=== PATIENT | male | born 1955 | race Caucasian/White ===

== ENCOUNTER 2021-04-19 17:00 | Emergency (ER) | payer MEDICARE, MEDICAID, SELFPAY ==
[2021-04-19 17:14] VITALS: BP 128/78; PULSE 82; RESP 18; TEMP 36.8; O2SAT 98; BMI 35.7
--- NOTE | 2021-04-19 20:02 | ED.SKABFB ---
HPI - Skin/Abscess/Foreign Bdy General Chief complaint: Skin/Abscess/Foreign Body Stated complaint: Abscess Time Seen by Provider: 04/19/21 20:01 Source: patient Mode of arrival: ambulatory Limitations: no limitations History of Present Illness HPI narrative: 66-year-old male presents to the ER with a painful lump on his back that he noticed 4 days ago. His reports that is red and raised and hard. He has had no fever or chills. No drainage from the area. He also complains of a rash the tip of his penis. He thinks it is a fungus. He has had this before and was treated with topical and oral medication with resolution. He denies any blood in his urine, burning with urination, increased frequency or urgency. He denies abdominal pain nausea vomiting. MD complaint: rash and abscess/boil Onset (ago): day(s) (4) Tetanus up to date: yes Location: back and genitals Severity: moderate Quality: aching Pain Consistency: intermittent Relieving factors: none Exacerbating factors: none Context: none Associated symptoms: denies other symptoms Treatments prior to arrival: none Related Data Previous Rx's Medication Instructions Recorded cephalexin 500 mg capsule 500 mg PO Q6H 7 Days #28 cap 04/19/21 clotrimazole 1 % topical cream 1 appl TOPICAL BID #45 g 04/19/21 Allergies Allergy/AdvReac Type Severity Reaction Status Date / Time methadone [Methadone] Allergy Mild AGITATION Unverified 01/21/20 15:10 morphine [Morphine] Allergy Mild AGITATION Unverified 01/21/20 15:10 oxycodone [From Percocet] Allergy Mild ITCHING Unverified 01/21/20 15:10 atorvastatin Allergy Unknown Verified 04/10/17 00:00 niacin Allergy Unknown Verified 04/10/17 00:00 MORPHINE Allergy Unknown Uncoded 04/10/17 00:00 Review of Systems Review of Systems: Constitutional: No Fever, No Chills ENT/Mouth: No sore throat, No Rhinorrhea, No Swallowing Difficulty Cardiovascular: No Chest Pain, No SOB Gastrointestinal: No Nausea, No Vomiting, No Diarrhea, No abdominal Pain Genitourinary: No Dysuria, No Urinary Frequency, No Hematuria, No penile discharge Musculoskeletal: No joint pain, + Myalgias Skin: + Skin Lesions, + rash Heme/Lymph: No Bruising Endocrine: No Polyuria, No Polydipsia PMFSH Social History Social History Advance Directives: No Advance Directives Information Provided: No Physical Exam Vital Signs: Vital Signs: Last Vital Signs Temp 98.3 F 04/19/21 17:14 Pulse 82 04/19/21 17:14 Resp 18 04/19/21 17:14 BP 128/78 04/19/21 17:14 Pulse Ox 98 04/19/21 17:14 BMI result Body Mass Index 35.7 Appearance: Alert. Oriented X3. No acute distress. Eyes: Pupils equal, round and reactive to light. ENT: Pharynx normal. Neck: Normal inspection. Neck supple. CVS: Normal heart rate and rhythm. Pulses normal. Respiratory: No respiratory distress. Breath sounds normal. Back: Middle upper back with a large 6 cm indurated area with some bluish/erythematous skin changes overlying with central comedone present. Thick white pus able to be expressed slightly. No fluctuance. No warmth. Genitalia: Uncircumcised penis, when foreskin is retracted there is some friable erythematous skin with superficial spliting around the glans, tender, no drainage, no urethral meatus drainage. Testicles are nontender Extremities: No lower extremity edema. Neuro: Oriented X 3. No motor deficit. No sensory deficit. Course Course Course Narrative: 66-year-old male presents to the ER with a painful bump on his back for the last 4 days as well as some tender, erythematous skin with splitting at the glans of his penis. Exam is consistent with balanitis, most consistent with fungal etiology. Will prescribe topical clotrimazole. He also has some mild cellulitis with a inflamed most likely cyst of the back. There is no evidence for abscess. It is indurated and not amenable to incision and drainage at this time. He was counseled to follow-up his primary care doctor and Dermatology for possible excision with cyst wall removal. Patient agreeable with plan is stable for discharge home. Will treat with p.o. Keflex for possible mild superficial cellulitis. Discharge Plan Discharge Clinical Impression: Cellulitis Qualifiers: Site of cellulitis: trunk Site of cellulitis of trunk: back Qualified Code(s): L03.312 - Cellulitis of back [any part except buttock] Patient Disposition: Home, Self-Care Instructions: Cellulitis (ED), Balanitis (ED), Warm Compress or Soak (ED) Prescriptions: New cephalexin 500 mg capsule 500 mg PO Q6H 7 Days Qty: 28 RF: 0 clotrimazole 1 % cream 1 appl topical BID Qty: 45 RF: 0 Referrals: Madeline Randall PA-C [Physician Senior Information Security Architect] - 1 week (large cyst on the back) Print Language: Palauan
== END 2021-04-19 20:37 | disposition home or self-care (01) ==
PROVIDERS: Emergency Provider Emergency Medicine; PCP Student in an Organized Health Care Education/Training Program
DX: L03.312 Cellulitis of back [any part except buttock and flank] (principal); N48.1 Balanitis
CPT/HCPCS: 99283

== ENCOUNTER 2021-11-10 15:36 | Emergency (ER) | payer MEDICARE, MEDICAID, SELFPAY ==
--- NOTE | ~2021-11-10 | XR_ITS ---
EXAMINATION: XR WRIST, RIGHT CLINICAL INFORMATION: Pain and tingling COMPARISON: Right finger radiographs 03/07/2019 TECHNIQUE: Four views of the right wrist. FINDINGS: No acute fracture or dislocation. Joint spaces are maintained. Soft tissues are unremarkable. XR/XR wrist RT min 3V IMPRESSION: No acute osseous abnormality.
[2021-11-10 15:41] VITALS: BP 122/78; PULSE 95; RESP 18; TEMP 35.9; O2SAT 94; BMI 37.8
--- NOTE | 2021-11-10 15:44 | ECG_ITS ---
Test Reason : arm pain Blood Pressure : / mmHG Vent. Rate : 087 BPM Atrial Rate : 087 BPM P-R Int : 154 ms QRS Dur : 098 ms QT Int : 380 ms P-R-T Axes : 052 -49 089 degrees QTc Int : 457 ms Normal sinus rhythm Incomplete right bundle branch block Left anterior fascicular block Minimal voltage criteria for LVH, may be normal variant ( R in aVL ) Abnormal ECG When compared to the previous EKG of No significant changes seen Referred By: Generic ED Physician Electronically Signed By:Jose Thompson
[2021-11-10 16:38] LABS: Appearance Urine CLEAR; Color Urine YELLOW; Glucose Urine UA >=1000 MG/DL (NEG); Leukocyte Esterase Urine NEG (NEG); Nitrite Urine NEG (NEG); PH 5.5 (5.0-8.0); UACC Culture Trigger NO; Urine Blood TRACE (NEG); Urine Ketones NEG (NEG); Urine Protein 1+ MG/DL (NEG-TRACE)
[2021-11-10 16:56] LABS: Mucus Urine TRACE /LPF; RBC Urine 0 /HPF (0); Renal Epithelial Cells Urine TRACE /LPF; Squamous Epithelial Cell Urine TRACE /LPF; WBC Urine 0-2 /HPF (0-4)
[2021-11-10] MEDS: Fluconazole 150 MG TABLET PO (17:13)
[2021-11-10] MEDS: Ketorolac Tromethamine 15 MG/ML VIAL IM (17:14)
--- NOTE | 2021-11-10 17:18 | ED_ITS ---
HPI - Extremity Problem General Chief complaint: Extremity Injury, Upper Stated complaint: r arm pain Time Seen by Provider: 11/10/21 16:50 Source: patient and family Mode of arrival: ambulatory Limitations: no limitations History of Present Illness HPI Narrative: 66-year-old male with history of diabetes who presents to the ER for evaluation of nontraumatic right wrist pain for the last 1 week. He reports the pain is shooting in nature and causes tingling into his middle finger. It is worse within he moves his wrist and palpates the palmar aspect of the wrist. He is right-hand dominant. He does not work. He also reports there was some shooting of the pain into the forearm and generalized swelling of his forearm the other day, which has improved. No fever or chills. No weakness in the right upper e xtremity. No right shoulder pain and no chest pain. No shortness of breath. MD Complaint: extremity pain Onset (ago): week(s) (1) Pain Consistency: constant Location: right and upper extremity Severity scale (1-10): 6 Quality: stabbing and sharp Radiation: proximal and distal Relieving factors: rest Exacerbating factors: range of motion and palpation Associated symptoms: denies other symptoms Related Data Previous Rx's Medication Instructions Recorded cephalexin 500 mg capsule 500 mg PO Q6H 7 days #28 caps 04/19/21 clotrimazole 1 % topical cream 1 appl topical BID #45 grams 04/19/21 clotrimazole 1 % topical cream 1 appl topical BID 2 weeks #30 11/10/21 grams fluconazole 150 mg tablet 150 mg PO ONCE #1 tab 11/10/21 (Diflucan) naproxen 500 mg tablet 500 mg PO BID pain #10 tabs 11/10/21 Allergies Allergy/AdvReac Type Severity Reaction Status Date / Time methadone [Methadone] Allergy Mild AGITATION Unverified 01/21/20 15:10 morphine [Morphine] Allergy Mild AGITATION Unverified 01/21/20 15:10 oxycodone [From Percocet] Allergy Mild ITCHING Unverified 01/21/20 15:10 atorvastatin Allergy Unknown Verified 04/10/17 00:00 niacin Allergy Unknown Verified 04/10/17 00:00 MORPHINE Allergy Unknown Uncoded 04/10/17 00:00 Review of Systems Review of Systems: Constitutional: No Fever, No Chills ENT/Mouth: No sore throat, No Rhinorrhea Cardiovascular: No Chest Pain, No SOB Respiratory: No Cough, No Sputum Gastrointestinal: No Nausea, No Vomiting, No Diarrhea, No abdominal Pain, No Hematochezia, No Melena Genitourinary: No Dysuria, No Urinary Frequency, No Hematuria, +penile head infection Musculoskeletal: + joint pain, No Myalgias Skin: No Skin Lesions, No rash Neuro: No Weakness, No Numbness Heme/Lymph: No Bruising, No Lymphadenopathy Endocrine: No Polyuria, No Polydipsia [facility] Social History Social History Advance Directives: No Advance Directives Information Provided: Yes Physical Exam Vital Signs: Vital Signs: Last Vital Signs Temp 97.6 F 11/10/21 19:09 Pulse 65 11/10/21 19:09 Resp 18 11/10/21 19:09 BP 143/79 H 11/10/21 19:09 Pulse Ox 93 11/10/21 19:09 O2 Del Method 11/10/21 19:09 BMI result Body Mass Index 37.8 Appearance: Alert. Oriented X3. No acute distress. Eyes: Pupils equal, round and reactive to light. ENT: Pharynx normal. Neck: Normal inspection. Neck supple. CVS: Normal heart rate and rhythm. Pulses normal. Respiratory: No respiratory distress. Breath sounds normal. Abdomen: Soft and nontender. +BS x4 : Uncircumcised penis, foreskin is easily retractable with raw and irritated skin on the glans, white discharge present. No urethral meatal discharge. No scrotal tenderness. Skin: Skin warm and dry. Normal skin color. Normal skin turgor. No rashes. Extremities: No lower extremity edema. Right wrist with mild generalized swelling, tenderness to palpation on the volar aspect. On the palmar aspect positive Tinel sign. Positive sensory deficit along the middle finger on the right hand. Vascularly intact with cap refill less than 3 seconds. Equal phone screener strength bilaterally. Bilateral forearms are equal and symmetric. Compartments are soft and compressible. Some discomfort with range of motion of the right wrist. Neuro: Oriented X 3. Grossly normal, nonfocal. Course Course Course Narrative: 66-year-old male presents to the ER with nontraumatic right wrist pain and paresthesias in the right middle finger. Physical exam and clinical presentation are most consistent with carpal tunnel syndrome. X-ray is negative. He was placed in a velcro wrist cock-up splint with significant improvement in his symptoms. Will plan to refer to Dr. Manzano for further evaluation and treatment. Will give a short course of NSAID for pain control. Physical exam also consistent with fungal balanitis. He has a history of this in the past. He was given dose of Diflucan and will plan to prescribed topical antifungal agent to treat. He will follow up with primary care doctor next week. He is stable for discharge home. MDM - Extremity (Nontraumatic) Lab Data Labs: Lab Results 11/10/21 Range/Units 16:14 Urine Color YELLOW Urine Appearance CLEAR Urine pH 5.5 (5.0-8.0) Ur Specific [place] 1.020 (1.005-1.025) Urine Protein 1+ H (NEG-TRACE) MG/DL Urine Glucose (UA) >=1000 H (NEG) MG/DL Urine Ketones NEG (NEG) MG/DL Urine Blood TRACE (NEG) Urine Nitrite NEG (NEG) Ur Leukocyte Esterase NEG (NEG) Urine RBC 0 (0) /HPF Urine WBC 0-2 (0-4) /HPF Ur Squamous Epith Cells TRACE /LPF Ur Renal Epithelial Cell TRACE /LPF Urine Bacteria NONE /LPF Urine Mucus TRACE /LPF Urine Yeast 1+ /HPF ECG Data Attestation EKG: I personally reviewed and interpreted this ECG as follows: ECG interpretation date: 11/10/21 ECG interpretation time: 19:58 Prior ECG tracings: available for review Interpretation: Normal sinus rhythm, heart rate 87 beats per minute, incomplete right bundle branch block, no ST segment elevations or depressions. QTC 457. Critical Care Time Critical Care Time Critical Care Time: No Discharge Plan Discharge Clinical Impression: Carpal tunnel syndrome, Balanitis Patient Disposition: Home, Self-Care Instructions: Balanitis (ED), Paresthesia (ED), Carpal Tunnel Surgery (DC) Additional Instructions: Your x-ray of the wrist was normal. Your examination and symptoms are most likely due to carpal tunnel syndrome. Recommend wearing the provided wrist brace as needed for comfort throughout the day. Also recommend that you wear the brace when you sleep at nighttime. Recommend following up with orthopedics for further evaluation and treatment. Take the prescribed Diflucan in 72 hours. You were given 1 dose in the em ergency department today. Use the prescribed topical anti fungal treatment on your penis to help treat the infection. Follow-up with your doctor next week. If you develop new or worsening symptoms call 911 or come back to the ER for further evaluation. Fonseca radiograf?a de la mu?eca fue normal. Lo m?s probable es que fonseca examen y edin s?ntomas se deban al s?ndrome del t?cori carpiano. Se recomienda usar la mu?equera provista seg?n sea necesario para mayor comodidad eliana todo el d?a. Tambi?n le recomendamos que use el aparato ortop?dico cuando duerma por la noche. Recomendar el seguimiento con ortopedia para radu evaluaci?n y tratamiento adicionales. [place] el Diflucan recetado en 72 horas. Le dieron 1 dosis en el departamento de emergencias hoy. Use el tratamiento antimic?jim t?farzad recetado en fonseca pene para ayudar a tratar la infecci?n. Seguimiento con fonseca m?dico la pr?xima semana. Si desarrolla s?ntomas nuevos o que empeoran, llame al 911 o regrese a la juan de emergencias para radu evaluaci?n adicional. Prescriptions: New clotrimazole 1 % cream 1 appl topical BID 14 Days Qty: 30 0RF fluconazole [Diflucan] 150 mg tablet 150 mg PO ONCE Qty: 1 0RF Rx Instructions: to be taken on 11/13/21 naproxen 500 mg tablet 500 mg PO BID Qty: 10 0RF No Action cephalexin 500 mg capsule 500 mg PO Q6H 7 Days Qty: 28 0RF clotrimazole 1 % cream 1 appl topical BID Qty: 45 0RF Referrals: Mai Manzano MD [Physician] - (Right wrist pain, exam consistent with carpal tunnel syndrome.)
[2021-11-10 19:09] VITALS: BP 143/79; PULSE 65; RESP 18; TEMP 36.4; O2SAT 93
== END 2021-11-10 20:02 | disposition home or self-care (01) ==
PROVIDERS: Emergency Provider Internal Medicine; PCP Student in an Organized Health Care Education/Training Program
DX: G56.01 Carpal tunnel syndrome, right upper limb (principal); N48.1 Balanitis; I45.19 Other right bundle-branch block
CPT/HCPCS: 73110; 81001; 93005; 96372; 99283; 99284; J1885

== ENCOUNTER 2021-11-30 16:00 | Emergency (ER) | payer MEDICARE, MEDICAID, SELFPAY ==
--- NOTE | ~2021-11-30 | XR_ITS ---
EXAMINATION: XR HAND, RIGHT CLINICAL INFORMATION: Pain. COMPARISON: None TECHNIQUE: PA, lateral, and oblique views of the right hand. FINDINGS: The bones and soft tissues are normal. No fracture. Alignment is anatomic. Joint spaces are maintained. No erosions or soft tissue calcifications. XR/XR hand wrist RT IMPRESSION: Normal right hand.
--- NOTE | ~2021-11-30 | US_ITS ---
EXAMINATION: US VENOUS WITH DOPPLER UPPER EXTREMITY, RIGHT CLINICAL INFORMATION: Right upper extremity pain and swelling. Evaluate for deep vein thrombosis. COMPARISON: None TECHNIQUE: Ultrasound of the upper extremity is performed using compression sonography and color and pulse Doppler flow with assessment of augmentation of flow. There is also imaging and Doppler assessment of the jugular and subclavian veins. Spectral analysis with color-flow imaging is performed. FINDINGS: Respiratory variation, normal compression, and augmented flow are noted throughout the upper extremity including the axillary, brachial, cubital, and radial and ulnar veins. There is normal flow in the internal jugular and subclavian veins. There is no visible deep or superficial thrombophlebitis. If the patient's symptoms progress, a followup ultrasound in 5 -7 days might be of value to exclude proximal propagation from a nonvisualized distal arm vein. US/US venous duplex UE RT IMPRESSION: No DVT demonstrated in the right upper extremity.
[2021-11-30 17:28] VITALS: BP 140/74; PULSE 86; RESP 16; TEMP 36.6; O2SAT 94; BMI 36.6
--- NOTE | 2021-11-30 20:16 | ED.EXTPRO ---
HPI - Extremity Problem General Chief complaint: Extremity Problem Stated complaint: R HAND SWELLING Time Seen by Provider: 11/30/21 20:14 Source: patient Mode of arrival: ambulatory Limitations: no limitations History of Present Illness HPI Narrative: 66-year-old male with history of diabetes presenting to the ER for nontraumatic right wrist pain for 2-3 weeks.? He descibes the pain as shooting and causes tingling into his middle fingers intermittently.? It is worse within he moves his wrist and palpates the palmar aspect of the wrist.? He is right-hand dominant.? He does not work.? He also reports there was some shooting pain into the forearm and generalized swelling of his forearm?that has been worsening. Denies fevers, chills, chest pain, shortness of breath, nausea, vomiting. Patient not on anticoagulation. No history of DVT. MD Complaint: extremity pain and extremity swelling Related Data Previous Rx's Medication Instructions Recorded cephalexin 500 mg capsule 500 mg PO Q6H 7 days #28 caps 04/19/21 clotrimazole 1 % topical cream 1 appl topical BID #45 grams 04/19/21 clotrimazole 1 % topical cream 1 appl topical BID 2 weeks #30 11/10/21 grams fluconazole 150 mg tablet 150 mg PO ONCE #1 tab 11/10/21 (Diflucan) naproxen 500 mg tablet 500 mg PO BID pain #10 tabs 11/10/21 acetaminophen 325 mg capsule 650 mg PO Q6H PRN pain #20 caps 11/30/21 prednisone 20 mg tablet 40 mg PO DAILY 5 days #10 tabs 11/30/21 Allergies Allergy/AdvReac Type Severity Reaction Status Date / Time methadone [Methadone] Allergy Mild AGITATION Unverified 01/21/20 15:10 morphine [Morphine] Allergy Mild AGITATION Unverified 01/21/20 15:10 oxycodone [From Percocet] Allergy Mild ITCHING Unverified 01/21/20 15:10 atorvastatin Allergy Unknown Verified 04/10/17 00:00 niacin Allergy Unknown Verified 04/10/17 00:00 MORPHINE Allergy Unknown Uncoded 04/10/17 00:00 Review of Systems Review of Systems: Constitutional : No Weight loss, No Fever, No Chills, No Fatigue, No Malaise ENT/Mouth : No sore throat, No Rhinorrhea Eyes: No Eye Pain, No Swelling, No Redness Cardiovascular : No Chest Pain, No SOB, No Dyspnea on Exertion, No Orthopnea, No Edema, No Palpitations Respiratory : No Cough, No Sputum, No Wheezing Gastrointestinal : No Nausea, No Vomiting, No Diarrhea, No Constipation, No abdominal Pain, No Hematochezia, No Melena Genitourinary : No Dysuria, No Urinary Frequency, No Hematuria, Musculoskeletal : + joint pain, No Myalgias, + Joint Swelling Skin : No Skin Lesions, No rash Neuro : No Weakness, No Numbness, No Dizziness, No Headache All other systems reviewed and are negative Yes all other systems are reviewed and are negative [facility] Past Medical History Attestation statement: The following information was validated with the patient. Source: old records reviewed and nursing notes reviewed Social History Social History Advance Directives: No Advance Directives Information Provided: No Physical Exam Vital Signs: Vital Signs: Last Vital Signs Temp 98 F 11/30/21 17:28 Pulse 86 11/30/21 17:28 Resp 16 11/30/21 17:28 BP 140/74 H 11/30/21 17:28 Pulse Ox 94 11/30/21 17:28 O2 Del Method 11/30/21 17:28 BMI result Body Mass Index 36.6 VSS Appearance: Alert.? Oriented X3.? No acute distress.? Head: Normocephalic, atraumatic, no step-offs or deformities Eyes: Pupils equal, round and reactive to light.? ENT: Pharynx normal.? Neck: Normal inspection.? Neck supple.? CVS: Normal heart rate and rhythm.? Pulses normal.? Respiratory: No respiratory distress.? Breath sounds normal.? Abdomen: Soft and nontender.? Skin: Skin warm and dry.? Normal skin color.? Normal skin turgor.? Extremities: No lower extremity edema, no calf ttp. + RUE edema 2+ non pitting with overlying warmth. 5/5 strength to bilateral upper and lower extremities. Normal opposition in and repositioning bilaterally however painful on right. 2+ radial pulses equal bilateral. No wrist drop bilaterally. Neurovascularly intact, capillary refill less than 2 seconds to all upper extremity digits. Sensory intact to bilateral upper extremities. Normal hand phosphatic fertilizer supervisor bilaterally, however pain w/ hand phosphatic fertilizer supervisor. Normal strength to fingers and wrist bilaterally. Very painful rom of right wrist. Neuro: Oriented X 3.? No motor deficit.? No sensory deficit. CN 2-12 intact Course Reevaluation(s) Reevaluation #1: Patient's CBC appears to be within normal limits. Chemistry with a slightly low sodium however will receive hydration. Random glucose 380 again receiving fluids. Uric acid within normal limits however this could be normal during an acute flare of gout. CRP is elevated therefore supporting likely diagnosis of gout. I did discuss this case with my attending, likely diagnosis gout. Recommended Toradol, Solu-Medrol, wrist splint Time: 23:35 Reevaluation #2: At this time patient will be discharged home, pain slightly improved after Toradol, Solu-Medrol. At this time patient will be discharged home advised to return with new or worsening symptoms. Comfortable discharge home. Time: 00:27 MDM - Extremity (Nontraumatic) MDM Narrative Medical decision making narrative: 2020 66 yo m presents w/ right sided hand/ wrist pain X2-3 weeks, worsening and not resolving. PE RUE edema 2+ non pitting with overlying warmth. 5/5 strength to bilateral upper and lower extremities. Normal opposition in and repositioning bilaterally however painful on right. 2+ radial pulses equal bilateral. No wrist drop bilaterally. Neurovascularly intact, capillary refill less than 2 seconds to all upper extremity digits. Sensory intact to bilateral upper extremities. Normal hand phosphatic fertilizer supervisor bilaterally, however pain w/ hand phosphatic fertilizer supervisor. Normal strength to fingers and wrist bilaterally. Very painful rom of right wrist. Low suspicion for fractures, dislocations, acute ligament or tendon injury. Concerns for DVT of UE, gout, pseudogout and or cellulitis Plan at this time blood cultures, lactic, us ue, labs, xray Medical Records Attestation: I reviewed the patient's medical records. Lab Data Attestation: I reviewed the patient's lab results. Result diagrams: 11/30/21 22:41 11/30/21 22:41 Labs: Lab Results 11/30/21 11/30/21 11/30/21 Range/Units 22:40 22:41 22:41 WBC 7.6 (4.8-10.8) X10*3/uL RBC 4.35 L (4.60-5.80) X10*6/uL Hgb 13.1 L (14.0-18.0) g/dl Hct 38.8 L (42.0-52.0) % MCV 89.2 (80.0-98.0) fL MCH 30.1 (27.0-33.0) pg MCHC 33.8 (31.0-36.0) g/dl RDW 13.2 (11.0-16.0) % Plt Count 618 H (160-400) X10*3/uL MPV 10.1 (9.4-12.4) fL Immature Gran % (Auto) 0.4 (0.0-0.4) % Neut % (Auto) 67.2 (45-73) % Lymph % (Auto) 19.8 L (20-40) % [place] % (Auto) 9.7 (2-11) % Eos % (Auto) 2.4 (0-4) % Baso % (Auto) 0.5 (0-2) % Lymph # (Auto) 1.5 (1.2-4.9) X10*3/uL [place] # (Auto) 0.7 (0.1-1.2) X10*3/uL Eos # (Auto) 0.2 (0.0-0.4) X10*3/uL Baso # (Auto) 0.0 (0.0-0.2) X10*3/uL Abs Immat Gran (auto) 0.03 (0.00-0.03) X10*3/uL Absolute Neuts (auto) 5.1 (2.0-8.3) x10*3/uL Absolute Nucleated RBC 0.000 (0.0-0.012) X10*3/uL Nucleated RBC % (auto) 0.0 (0.0-0.2) /100WBC Sodium 130 L (135-145) mmol/L Potassium 4.2 (3.3-5.1) mmol/L Chloride 99 (96-108) mmol/L Carbon Dioxide 21 L (22-29) mmol/L Anion Gap 14 (12-20) BUN 16 (9-16) mg/dL Creatinine 0.94 (0.5-1.4) mg/dL Estim Creat Clear Calc 89.7 Estimated GFR > 60 Random Glucose 380 H* (60-115) mg/dL Lactic Acid 1.5 (0.5-2.0) mmol/L Uric Acid (3.4-7.0) mg/dL Calcium 9.0 (8.4-10.2) mg/dL Total Bilirubin 0.3 (0.0-1.0) mg/dL AST 34 (5-37) U/L ALT 31 (0-40) U/L Alkaline Phosphatase 85 (39-117) U/L C-Reactive Protein (< or = 0.50) mg/dL Total Protein 7.5 (6.5-8.0) g/dL Albumin 3.9 (3.5-5.0) g/dL COVID-19 (SHERYL) (Negative) COVID-19 Clin Com 11/30/21 11/30/21 Range/Units 22:41 22:41 WBC (4.8-10.8) X10*3/uL RBC (4.60-5.80) X10*6/uL Hgb (14.0-18.0) g/dl Hct (42.0-52.0) % MCV (80.0-98.0) fL MCH (27.0-33.0) pg MCHC (31.0-36.0) g/dl RDW (11.0-16.0) % Plt Count (160-400) X10*3/uL MPV (9.4-12.4) fL Immature Gran % (Auto) (0.0-0.4) % Neut % (Auto) (45-73) % Lymph % (Auto) (20-40) % [place] % (Auto) (2-11) % Eos % (Auto) (0-4) % Baso % (Auto) (0-2) % Lymph # (Auto) (1.2-4.9) X10*3/uL [place] # (Auto) (0.1-1.2) X10*3/uL Eos # (Auto) (0.0-0.4) X10*3/uL Baso # (Auto) (0.0-0.2) X10*3/uL Abs Immat Gran (auto) (0.00-0.03) X10*3/uL Absolute Neuts (auto) (2.0-8.3) x10*3/uL Absolute Nucleated RBC (0.0-0.012) X10*3/uL Nucleated RBC % (auto) (0.0-0.2) /100WBC Sodium (135-145) mmol/L Potassium (3.3-5.1) mmol/L Chloride (96-108) mmol/L Carbon Dioxide (22-29) mmol/L Anion Gap (12-20) BUN (9-16) mg/dL Creatinine (0.5-1.4) mg/dL Estim Creat Clear Calc Estimated GFR Random Glucose (60-115) mg/dL Lactic Acid (0.5-2.0) mmol/L Uric Acid 4.3 (3.4-7.0) mg/dL Calcium (8.4-10.2) mg/dL Total Bilirubin (0.0-1.0) mg/dL AST (5-37) U/L ALT (0-40) U/L Alkaline Phosphatase (39-117) U/L C-Reactive Protein 4.34 H (< or = 0.50) mg/dL Total Protein (6.5-8.0) g/dL Albumin (3.5-5.0) g/dL COVID-19 (SHERYL) Negative (Negative) COVID-19 Clin Com See Note Critical Care Time Critical Care Time Critical Care Time: No Discharge Plan Discharge Clinical Impression: Swelling of right wrist, Gout Patient Disposition: Home, Self-Care Additional Instructions: Take your medications as prescribed. If you were prescribed antibiotics today, it is important that you take your medication to their entirety, do not skip any doses, do not finish them early. Follow-up with your primary care provider this week. Return to the emergency department with new or worsening symptoms. Such as fevers, chills, chest pain, shortness of breath, nausea, vomiting, dizziness, headache, vision changes, lethargy In case of emergency call 911 XR/XR hand wrist RT IMPRESSION: Normal right hand. US/US venous duplex UE RT IMPRESSION: No DVT demonstrated in the right upper extremity. Prescriptions: New prednisone 20 mg tablet 40 mg PO DAILY 5 Days Qty: 10 0RF acetaminophen 325 mg capsule 650 mg PO Q6H PRN (Reason: pain) Qty: 20 0RF No Action cephalexin 500 mg capsule 500 mg PO Q6H 7 Days Qty: 28 0RF clotrimazole 1 % cream 1 appl topical BID Qty: 45 0RF clotrimazole 1 % cream 1 appl topical BID 14 Days Qty: 30 0RF fluconazole [Diflucan] 150 mg tablet 150 mg PO ONCE Qty: 1 0RF Rx Instructions: to be taken on 11/13/21 naproxen 500 mg tablet 500 mg PO BID Qty: 10 0RF Referrals: Nubia Johnson MD [Primary Care Provider] - 2 days Stand Alone Forms: Work/School Release
[2021-11-30 22:48] LABS: MANUAL DIFF FLAG NO
[2021-11-30 23:12] LABS: Lactic Acid 1.5 mmol/L (0.5-2.0)
[2021-11-30 23:18] LABS: C Reactive Protein 4.34 mg/dL (< or = 0.50); Uric Acid 4.3 mg/dL (3.4-7.0)
[2021-11-30 23:21] LABS: Basophils Percent Auto 0.5 % (0-2); Eosinophils Absolute Auto 0.2 X10*3/uL (0.0-0.4); Eosinophils Percent Auto 2.4 % (0-4); Hematocrit 38.8 % (42.0-52.0); Hemoglobin 13.1 g/dl (14.0-18.0); Imm Gran Abs Auto 0.03 X10*3/uL (0.00-0.03); Imm Gran Pct Auto 0.4 % (0.0-0.4); Lymphocytes Absolute Auto 1.5 X10*3/uL (1.2-4.9); Lymphocytes Percent Auto 19.8 % (20-40); Mean Corpuscular HGB Conc 33.8 g/dl (31.0-36.0); Mean Corpuscular Hemoglobin 30.1 pg (27.0-33.0); Mean Corpuscular Volume 89.2 fL (80.0-98.0); Mean Platelet Volume 10.1 fL (9.4-12.4); Monocytes Absolute Auto 0.7 X10*3/uL (0.1-1.2); Monocytes Percent Auto 9.7 % (2-11); Neutrophils Absolute Auto 5.1 x10*3/uL (2.0-8.3); Neutrophils Percent Auto 67.2 % (45-73); Platelet Count 618 X10*3/uL (160-400); Red Blood Count 4.35 X10*6/uL (4.60-5.80); Red Cell Distribution Width 13.2 % (11.0-16.0); White Blood Count 7.6 X10*3/uL (4.8-10.8)
[2021-11-30 23:28] LABS: COVID-19 Test Negative (Negative)
[2021-11-30] MEDS: Ketorolac Tromethamine 30 MG/ML VIAL IVPUSH (23:28)
[2021-11-30] MEDS: methylPREDNISolone Sod Succ 125 MG/2 ML VIAL IVPUSH (23:28)
[2021-11-30 23:29] LABS: Alanine Aminotransferase 31 U/L (0-40); Albumin Level 3.9 g/dL (3.5-5.0); Alkaline Phosphatase 85 U/L (39-117); Anion Gap 14 (12-20); Aspartate Amino Transferase 34 U/L (5-37); Bilirubin Total 0.3 mg/dL (0.0-1.0); Blood Urea Nitrogen 16 mg/dL (9-16); Carbon Dioxide 21 mmol/L (22-29); Chloride 99 mmol/L (96-108); Creatinine Clr Calc Pharmacy 89.7; Estimated Glomerular Filt Rate > 60; Glucose Random 380 mg/dL (60-115); Potassium 4.2 mmol/L (3.3-5.1); Sodium 130 mmol/L (135-145); Total Protein 7.5 g/dL (6.5-8.0)
[2021-11-30] MEDS: 0.9 % Sodium Chloride 1,000 ML 999 ML IV (23:40)
== END 2021-12-01 00:56 | disposition home or self-care (01) ==
PROVIDERS: Physician Assistant; Emergency Provider Internal Medicine; PCP Student in an Organized Health Care Education/Training Program
DX: M10.031 Idiopathic gout, right wrist (principal); R60.0 Localized edema; M79.642 Pain in left hand; M79.641 Pain in right hand; Z20.822 Contact with and (suspected) exposure to COVID-19; Z79.899 Other long term (current) drug therapy
CPT/HCPCS: 36415; 73110; 73130; 80053; 83605; 84550; 85025; 86140; 87040; 87635; 93971; 96361; 96374; 96375; 99284; J1885; J2930

== ENCOUNTER 2022-01-25 12:13 | Outpatient (REF) | payer MEDICARE, MEDICAID, SELFPAY ==
--- NOTE | ~2022-01-25 | XR_ITS ---
EXAMINATION: XR SHOULDER, RIGHT CLINICAL INFORMATION: Right shoulder pain COMPARISON: None TECHNIQUE: Three views of the right shoulder. FINDINGS: Visualized portion of the proximal right humerus demonstrate no fracture. Humeral head demonstrates good articulation with the glenoid fossa. There is a small osteophyte off the inferior humeral head in addition to a small osteophyte off the superior glenoid. Moderate hypertrophic changes of the acromioclavicular joint. Visualized ribs and lung parenchyma are unremarkable. XR/XR shoulder RT min 2V IMPRESSION: Mild degenerative changes of the right shoulder.
== END 2022-01-25 12:14 | disposition home or self-care (01) ==
LOC: HO.HOSX 12:13
PROVIDERS: Visit Provider Physician Assistant
DX: M75.51 Bursitis of right shoulder (principal)
CPT/HCPCS: 20610; 73030; 99202; J1020

== ENCOUNTER 2022-02-09 00:41 | Emergency (ER) | payer MEDICARE, MEDICAID, SELFPAY ==
--- NOTE | ~2022-02-09 | XR_ITS ---
EXAMINATION: XR AND WRIST, LEFT CLINICAL INFORMATION: Injury COMPARISON: None TECHNIQUE: 3 views of the left hand/wrist. FINDINGS: Osseous alignment is anatomic. No acute fracture is seen. There is soft tissue swelling about the wrist. Tiny age-indeterminate foreign body noted in the soft tissues between the first and second metacarpals. XR/XR hand wrist LT IMPRESSION: No acute osseous findings identified. Soft tissue swelling at the wrist.
--- NOTE | ~2022-02-09 | XR_ITS ---
EXAMINATION: XR SHOULDER, LEFT CLINICAL INFORMATION: Injury COMPARISON: None TECHNIQUE: Three views of the left shoulder. FINDINGS: Glenohumeral alignment is anatomic with mild degenerative change noted. No acute fracture is seen. The acromioclavicular joint appears intact with mild degenerative change. XR/XR shoulder LT min 2V IMPRESSION: No acute findings identified.
[2022-02-09 01:44] VITALS: BP 123/85; PULSE 91; RESP 20; TEMP 37.2; O2SAT 96; BMI 31.4
--- NOTE | 2022-02-09 10:11 | ED_ITS ---
HPI - General Adult General Chief complaint: Extremity Problem Stated complaint: Shoulder pain Time Seen by Provider: 02/09/22 10:09 Source: patient Mode of arrival: ambulatory Limitations: no limitations History of Present Illness HPI narrative: Patient is a 67 year old male presenting to the emergency department today with left shoulder pain. Patient states that he can't lift his left arm straight up. Patient states that he is able to move it but it hurts to lift it straight above his head. Patient states that he has had issues with his right but now his left is also bugging him. Patient denies any dizziness, lightheadedness, abdominal pain, nausea, vomiting, fever, chills, blurry vision, double vision, loss of vision, chest pain, difficulty breathing, shortness of breath, back pain, night sweats, pain with urination, increased urinary frequency, increased urinary urgency, blood in his urine or stool, syncope or a near syncopal episode, recent trauma or falls, bowel incontinence, bladder incontinence, bowel retention, bladder retention, or any other complaints at this time. Onset (ago): day(s) (1) Location: right and upper extremity Radiation: non-radiation Severity: mild Severity scale (1-10): 3 Quality: dull Pain Consistency: constant Relieving factors: none Exacerbating factors: movement Associated symptoms: denies other symptoms Treatments prior to arrival: none Related Data Home Medications Medication Instructions Recorded Confirmed metformin 1,000 mg tablet 1,000 mg PO BID 01/25/22 Previous Rx's Medication Instructions Recorded clotrimazole 1 % topical cream 1 appl topical BID #45 grams 04/19/21 clotrimazole 1 % topical cream 1 appl topical BID 2 weeks #30 11/10/21 grams fluconazole 150 mg tablet 150 mg PO ONCE #1 tab 11/10/21 (Diflucan) naproxen 500 mg tablet 500 mg PO BID pain #10 tabs 11/10/21 acetaminophen 325 mg capsule 650 mg PO Q6H PRN pain #20 caps 11/30/21 cyclobenzaprine 5 mg tablet 5 mg PO TID PRN left shoulder pain 02/09/22 7 days #21 tabs Allergies Allergy/AdvReac Type Severity Reaction Status Date / Time methadone [Methadone] Allergy Mild AGITATION Unverified 01/25/22 11:52 morphine [Morphine] Allergy Mild AGITATION Unverified 01/25/22 11:52 oxycodone [From Percocet] Allergy Mild ITCHING Unverified 01/25/22 11:52 atorvastatin Allergy Unknown Unknown Verified 01/25/22 11:52 niacin Allergy Unknown Hives Verified 01/25/22 11:52 MORPHINE Allergy Unknown Unknown Uncoded 01/25/22 11:52 Review of Systems Constitutional: Constitutional: Reports no additional constitutional complaints, Denies chills, Denies fever(s) and Denies night sweats Eyes: Eyes: Reports no additional eye complaints, Denies blurry vision, Denies change in vision, Denies diplopia, Denies eye discharge, Denies loss of vision and Denies eye pain ENT: Denies dizziness Cardiovascular: Cardiovascular: Reports no additional cardiovascular complaints, Denies chest pain, Denies lightheadedness, Denies Loss of Consciousness and Denies dyspnea Respiratory: Respiratory: Reports no additional respiratory complaints and Denies dyspnea Gastrointestinal: Gastrointestinal: Reports no additional gastrointestinal complaints, Denies abdominal pain, Denies melena, Denies hematochezia, Denies change in bowel habits and Denies change in stool character Genitourinary: Genitourinary: Reports no additional male genitourinary complaints, Denies hematuria, Denies oliguria, Denies difficulty urinating, Denies dysuria, Denies urinary frequency, Denies urinary hesitancy, Denies urinary incontinence and Denies urinary urgency Musculoskeletal: Musculoskeletal: Reports no additional musculoskeletal complaints, Denies numbness and Denies tingling Comments: left shoulder pain Neurologic: Denies dizziness, Denies loss of vision, Denies numbness and Denies tingling Psychiatric: Psychiatric: Reports no additional psychiatric complaints Endocrine: Endocrine: Reports no additional endocrine complaints Hematologic/Lymphatic: Hematologic/Lymphatic: Reports no additional hematologic/lymphatic complaints Allergic/Immunologic: Allergic/Immunologic: Reports no additional allergic/immunologic complaints [facility] Past Medical History Attestation statement: The following information was validated with the patient. Source: old records reviewed Medical History Diabetes Social History Social History Advance Directives: No Advance Directives Information Provided: Yes Current occupational status: disabled Current occupation: rt hand Physical Exam ED Vital Signs: Vital Signs - 24 hr 02/09/22 01:44 Temperature 99.0 F Pulse Rate 91 Respiratory Rate 20 Blood Pressure 123/85 Pulse Oximetry 96 Oxygen Delivery Method Room Air BMI result Body Mass Index 31.4 Const General: cooperative, no acute distress, alert and awake Nutritional Appearance: well nourished Orientation/consciousness: patient oriented x3 Limitations: no limitations HENMT Head: Yes normal to inspection and Yes atraumatic Ears: hearing grossly normal bilaterally and external ears normal General nose exam: Normal external nose present, no nasal discharge noted and no epistaxis Face and sinus: Yes normal facial exam, No abrasion and No laceration Mouth: Normal oral and palatal mucosa present, no drooling and no muffled voice Eyes General: appearance normal, both eyes and all related structures Periorbital: periorbital findings normal Eyelids: Yes eyelids normal Conjunctivae: conjunctivae normal Pupils: Equal, round and reactive pupils present EOM: EOMs intact bilaterally Neck Neck: Yes normal visual inspection, Yes full ROM and Yes no lymphadenopathy Chest Chest palpation & inspection: normal inspection of the chest Resp Effort & Inspection: normal respiratory effort and able to speak in complete sentences Auscultation: clear to auscultation bilaterally Cardio Rate: regular rate Rhythm: regular rhythm GI Inspection: Yes normal to inspection Neuro General: patient oriented x3 and moves all extremities Cranial nerves: Yes Equal, round and reactive pupils present Cognition (Neuro): normal cognition Motor exam (neuro): 5/5 motor strength present throughout Sensory Exam: Normal double simultaneous stimulation for sensation Coordination: [id number] test normal Extrem Other: pain with abduction of left shoulder General: Yes normal to inspection and Yes capillary refill normal Psych Appearance: grossly normal Mental Status: mental status grossly normal Affect: normal affect Attitude: cooperative Thought process: Normal thought process present Thought content: Normal thought content present Insight: Good insight present (Psych) Medical Decision Making MDM Narrative Medical decision making narrative: Patient is a 67 year old male presenting to the emergency department today with left shoulder pain. Patient's physical exam showed pain of the left shoulder with abduction but was otherwise unremarkable. Patient's left shoulder, hand, and wrist x-rays showed no acute process. Patient's clinical presentation is most consistent with a rotator cuff injury. I explained my physical exam findings as well as all test results to the patient. I answered all questions asked by the patient. I stressed the importance of the patient taking his medication as prescribed. I stressed the importance of the patient following up with his primary care provider and an orthopedic provider. I stressed the importance of the patient returning to the emergency department immediately if his symptoms were to worsen or if he were to develop any dizziness, shortness of breath, difficulty breathing, chest pain, blurry vision, loss of vision, nausea, vomiting, abdominal pain, fever, chills, back pain, or any other complaints. Patient verbalized agreement and understanding with this treatment plan and discharge. Medical Records Medical records reviewed: Yes I reviewed the patient's medical records. Lab Data Lab results reviewed: Yes I reviewed the patient's lab results. Imaging Data Left shoulder x-ray: Attestation: I personally reviewed and interpreted this imaging study as follows: My impression: No acute process. Radiologist's impression: EXAMINATION: XR SHOULDER, LEFT CLINICAL INFORMATION: Injury? COMPARISON: None? TECHNIQUE: Three views of the left shoulder. FINDINGS: Glenohumeral alignment is anatomic with mild degenerative change noted. No acute fracture is seen. The acromioclavicular joint appears intact with mild degenerative change.? XR/XR shoulder LT min 2V IMPRESSION: No acute findings identified. Dictated By: Prince Henderson MD Signed By: Electronically signed by Prince Henderson MD 02/09/22 0309 Left wrist/hand x-ray: Attestation: I personally reviewed and interpreted this imaging study as follows: My impression: No acute process. Radiologist's impression: EXAMINATION: XR AND WRIST, LEFT CLINICAL INFORMATION: Injury? COMPARISON: None? TECHNIQUE: 3 views of the left hand/wrist.? FINDINGS: Osseous alignment is anatomic. No acute fracture is seen. There is soft tissue swelling about the wrist. Tiny age-indeterminate foreign body noted in the soft tissues between the first and second metacarpals.? XR/XR hand wrist LT IMPRESSION: No acute osseous findings identified. Soft tissue swelling at the wrist.? Dictated By: Prince Henderson MD Signed By: Electronically signed by Prince Henderson MD 02/09/22 0308 Discharge Plan Discharge Clinical Impression: Rotator cuff disorder Patient Disposition: Home, Self-Care Instructions: Rotator Cuff Injury (ED) Additional Instructions: Follow up with your primary care provider. Return to the emergency department immediately if your symptoms worsen or if you develop any dizziness, shortness of breath, difficulty breathing, chest pain, blurry vision, loss of vision, nausea, vomiting, abdominal pain, fever, chills, back pain, or any other complaints. Prescriptions: New cyclobenzaprine 5 mg tablet 5 mg PO TID PRN (Reason: left shoulder pain) 7 Days Qty: 21 0RF No Action clotrimazole 1 % cream 1 appl topical BID Qty: 45 0RF acetaminophen 325 mg capsule 650 mg PO Q6H PRN (Reason: pain) Qty: 20 0RF clotrimazole 1 % cream 1 appl topical BID 14 Days Qty: 30 0RF fluconazole [Diflucan] 150 mg tablet 150 mg PO ONCE Qty: 1 0RF Rx Instructions: to be taken on 11/13/21 naproxen 500 mg tablet 500 mg PO BID Qty: 10 0RF metformin 1,000 mg tablet 1,000 mg PO BID Referrals: [facility] [place] Family Medicine [Provider Group] (Call to establish and follow up with a primary care provider. If you already have a primary care provider, please follow up with them. ) [facility] [place] Primary Care, Betty [Provider Group] (Call to establish and follow up with a primary care provider. If you already have a primary care provider, please follow up with them. ) [facility] [place] Primary Care,Ramy [Provider Group] (Call to establish and follow up with a primary care provider. If you already have a primary care provider, please follow up with them. ) [facility] [Provider Group] (Call to establish and follow up with an orthopedic provider. ) [facility] [Provider Group] (Has a walk in clinic open from 0800 to 3pm TODAY) Interventions: ED Discharge Assessment Last Done: 02/09/22 11:33 Discharge Date/Time: 02/09/22 11:34 Print Language: Upper Sorbian
== END 2022-02-09 11:34 | disposition home or self-care (01) ==
PROVIDERS: Emergency Provider Emergency Medicine Emergency Medical Services
DX: S43.422A Sprain of left rotator cuff capsule, initial encounter (principal); M25.532 Pain in left wrist; W19.XXXA Unspecified fall, initial encounter; Y93.9 Activity, unspecified; Y92.9 Unspecified place or not applicable; Y99.9 Unspecified external cause status; Z79.899 Other long term (current) drug therapy
CPT/HCPCS: 73030; 73110; 73130; 99282; 99283

== ENCOUNTER 2022-05-04 12:48 | Outpatient (REF) | payer MEDICARE, MEDICAID, SELFPAY ==
--- NOTE | ~2022-05-04 | US_ITS ---
EXAMINATION: US VENOUS ULTRASOUND WITH DOPPLER LOWER EXTREMITY, BILATERAL CLINICAL INFORMATION: Evaluate for deep vein thrombosis COMPARISON: None TECHNIQUE: Ultrasound of the deep veins is performed from the hip to the calf with compression sonography and color and pulse Doppler assessment. Spectral analysis with color-flow imaging is performed. FINDINGS: RIGHT: There is normal venous compression and respiratory variation and augmented flow. The visualized common femoral vein, superficial femoral vein, profunda femoral vein, popliteal vein, and the trifurcation region shows no evidence of deep venous thrombosis. There is no significant popliteal fossa cyst. LEFT: There is normal venous compression and respiratory variation and augmented flow. The visualized common femoral vein, superficial femoral vein, profunda femoral vein, popliteal vein, and the trifurcation region shows no evidence of deep venous thrombosis. There is no significant popliteal fossa cyst. If the patient's symptoms persist, followup ultrasound in 5 days 7 days might be of value to exclude proximal propagation from a non-visualized calf vein. US/US venous duplex LE BI IMPRESSION: No DVT demonstrated in the right and left lower extremity.
== END 2022-05-04 12:49 | disposition home or self-care (01) ==
LOC: HO.US 12:48
PROVIDERS: PCP Student in an Organized Health Care Education/Training Program; Visit Provider Emergency Medicine
DX: R22.43 Localized swelling, mass and lump, lower limb, bilateral (principal)
CPT/HCPCS: 93970

== ENCOUNTER 2022-05-09 01:32 | Emergency (ER) | payer MEDICARE, MEDICAID, SELFPAY ==
[2022-05-09 01:34] VITALS: BP 137/73; BP 162/92; PULSE 102; PULSE 88; RESP 16; TEMP 36.7; O2SAT 97; O2SAT 98; BMI 31.4
--- NOTE | 2022-05-09 01:51 | ED.FALL ---
HPI - Fall General Chief Complaint: Fall Stated Complaint: fall,leg weakness Time Seen by Provider: 05/09/22 01:51 Source: patient, EMS and commissioning editor Mode of arrival: EMS Limitations: no limitations History of Present Illness HPI Narrative: 67-year-old male came in by ambulance for evaluation after a mechanical fall. Patient got out of his car and slipped on the wet ground fell forward patient tried to protect his fall with 2 hands, patient remained on the ground until EMS arrived he felt bilateral leg weakness and he could not get himself up, patient normally walk with a walker been treated by his PCP with diuresis for bilateral leg swelling, declined head injury, no neck pain, no CP, no SOB, no abdominal pain, no leg pain, no fever, no chills, patient in the emergency department feels at his baseline. Able to ambulate in the emergency department. Related Data Home Medications Medication Instructions Recorded Confirmed metformin 1,000 mg tablet 1,000 mg PO BID 01/25/22 Previous Rx's Medication Instructions Recorded clotrimazole 1 % topical cream 1 appl topical BID #45 grams 04/19/21 clotrimazole 1 % topical cream 1 appl topical BID 2 weeks #30 11/10/21 grams fluconazole 150 mg tablet 150 mg PO ONCE #1 tab 11/10/21 (Diflucan) naproxen 500 mg tablet 500 mg PO BID pain #10 tabs 11/10/21 acetaminophen 325 mg capsule 650 mg PO Q6H PRN pain #20 caps 11/30/21 cyclobenzaprine 5 mg tablet 5 mg PO TID PRN left shoulder pain 02/09/22 7 days #21 tabs Allergies Allergy/AdvReac Type Severity Reaction Status Date / Time methadone [Methadone] Allergy Mild AGITATION Unverified 01/25/22 11:52 morphine [Morphine] Allergy Mild AGITATION Unverified 01/25/22 11:52 oxycodone [From Percocet] Allergy Mild ITCHING Unverified 01/25/22 11:52 atorvastatin Allergy Unknown Unknown Verified 01/25/22 11:52 niacin Allergy Unknown Hives Verified 01/25/22 11:52 MORPHINE Allergy Unknown Unknown Uncoded 01/25/22 11:52 Review of Systems Review of Systems: All other systems are reviewed and are negative Constitutional: Reports as per HPI and Reports no additional constitutional complaints Eyes: Reports as per HPI and Reports no additional eye complaints Reports system reviewed and no additional complaints, except as documented Cardiovascular: Reports as per HPI and Reports no additional cardiovascular complaints Respiratory: Reports as per HPI and Reports no additional respiratory complaints Gastrointestinal: Reports as per HPI and Reports no additional gastrointestinal complaints Genitourinary: Reports no additional female genitourinary complaints Musculoskeletal: Reports no additional musculoskeletal complaints Skin/Breast: Reports system reviewed and no additional complaints, except as docu Psychiatric: Reports no additional psychiatric complaints Endocrine: Reports no additional endocrine complaints Hematologic/Lymphatic: Reports no additional hematologic/lymphatic complaints Allergic/Immunologic: Reports no additional allergic/immunologic complaints Reports system reviewed and no additional complaints, except as documented and Reports Abnormal speech present [facility] Past Medical History Medical History Diabetes Social History Social History Advance Directives: No Advance Directives Information Provided: No Current occupational status: disabled Current occupation: rt hand Physical Exam Vital Signs: Vital Signs: Last Vital Signs Temp 98.1 F 05/09/22 01:34 Pulse 88 05/09/22 01:34 Resp 16 05/09/22 01:34 BP 137/73 05/09/22 01:34 Pulse Ox 97 05/09/22 01:34 O2 Del Method 05/09/22 01:34 BMI result Body Mass Index 31.4 Vital signs have been reviewed as appeared to be correct. Blood pressure normal. Heart rate normal. Respiration rate normal. Temperature normal. Oxygen saturation normal. Appearance: Alert. Oriented X3. No acute distress. Head: Normal external exam. Normocephalic. Atraumatic. No Rivera signs noted. No raccoon eyes noted Eyes: PERRLA. EOMI. Conjunctiva and sclera normal. Eyelids normal. ENT: TM's Normal. Pharynx normal. Uvula midline. Moist mucous membranes. No trismus noted. No drooling noted. No muffled voice noted. Neck: Normal inspection. Neck supple. FROM. No adenopathy. Thyroid Normal. No meningeal signs. No neck mass noted. CVS: Normal heart rate and rhythm. Heart sound normal. No murmurs noted. Pulses normal throughout. Respiratory: No respiratory distress. Painless inspiration. Breath sounds normal. No wheezes/rales/rhonchi noted. Chest nontender. No accessory muscle usage noted or decreased air movement noted. Abdomen: Soft and nontender. Bowel sounds normal in all 4 quadrants. No distention noted. No organomegaly noted. No visible injury noted. Back: No CVA tenderness. Full range of motion noted. Skin: Skin warm and dry. Normal skin color. Normal skin turgor. No rashes/lesions/lacerations noted. Extremities: No lower extremity edema. Extremities exhibit normal range of motion. Extremities nontender. Neuro: Oriented X 3. Cranial nerve exam: II-XII are grossly intact No motor deficit. No sensory deficit. Reflexes normal. Course Course Course Narrative: Status post mechanical fall, normal neuro exam, able to ambulate with his cane in the emergency department at his baseline, patient lives home alone and will have INSTRUMENTATION MANAGER next week as was arranged by PCP. Patient is on diuretics as per PCP for bilateral lower extremity swelling and edema. Medical Decision Making Differential Diagnosis Differential Diagnoses: The differential diagnosis associated with the presentation includes (Mechanical fall, traumatic injury.) Discharge Plan Discharge Clinical Impression: Accident due to mechanical fall without injury Patient Disposition: Home, Self-Care Instructions: Fall Prevention (ED) Prescriptions: No Action clotrimazole 1 % cream 1 appl topical BID Qty: 45 0RF acetaminophen 325 mg capsule 650 mg PO Q6H PRN (Reason: pain) Qty: 20 0RF clotrimazole 1 % cream 1 appl topical BID 14 Days Qty: 30 0RF fluconazole [Diflucan] 150 mg tablet 150 mg PO ONCE Qty: 1 0RF Rx Instructions: to be taken on 11/13/21 naproxen 500 mg tablet 500 mg PO BID Qty: 10 0RF cyclobenzaprine 5 mg tablet 5 mg PO TID PRN (Reason: left shoulder pain) 7 Days Qty: 21 0RF metformin 1,000 mg tablet 1,000 mg PO BID
== END 2022-05-09 02:35 | disposition home or self-care (01) ==
PROVIDERS: Emergency Provider Emergency Medicine
DX: R53.1 Weakness (principal); Z91.81 History of falling
CPT/HCPCS: 99283

== ENCOUNTER 2022-07-26 12:21 | Outpatient (REF) | payer OTHER, SELFPAY ==
--- NOTE | 2022-07-26 08:15 | EMG_ITS ---
Right tibial and peroneal motor studies were performed right superficial peroneal and sural sensory studies were performed and tibial H-reflex was obtained. With the type of abnormalities noted in right leg, right median and ulnar motor and sensory studies were performed, radial and sensory study was performed, and needle examination was performed. 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 I would recommend a lumbar puncture to rule out chronic inflammatory demyelinating polyneuropathy type of pathology and appropriate investigations for its cause. MD GREG Adams/TOLU / [id number]
== END 2022-07-26 12:22 | disposition home or self-care (01) ==
LOC: HO.NEURO 12:21
PROVIDERS: PCP Emergency Medicine; Visit Provider Emergency Medicine
DX: M25.531 Pain in right wrist (principal)
CPT/HCPCS: 95886; 95911

== ENCOUNTER 2022-11-07 08:40 | Outpatient (REF) | payer OTHER, SELFPAY | END 2022-11-07 08:41 | disposition home or self-care (01) | LOC: HO.NEURO 08:40 | PROVIDERS: PCP Emergency Medicine; Visit Provider Emergency Medicine | DX: R20.0 Anesthesia of skin (principal); M79.604 Pain in right leg | CPT/HCPCS: 95885; 95911 ==

== ENCOUNTER 2023-01-03 15:38 | Outpatient (REF) | payer OTHER, SELFPAY ==
[2023-01-03 17:50] LABS: MANUAL DIFF FLAG NO
[2023-01-03 18:11] LABS: Basophils Percent Auto 0.4 % (0-2); Eosinophils Absolute Auto 0.2 X10*3/uL (0.0-0.4); Hematocrit 37.5 % (42.0-52.0); Hemoglobin 12.2 g/dl (14.0-18.0); Imm Gran Abs Auto 0.05 X10*3/uL (0.00-0.03); Imm Gran Pct Auto 0.6 % (0.0-0.4); Lymphocytes Absolute Auto 1.2 X10*3/uL (1.2-4.9); Mean Corpuscular HGB Conc 32.5 g/dl (31.0-36.0); Mean Corpuscular Hemoglobin 29.9 pg (27.0-33.0); Mean Corpuscular Volume 91.9 fL (80.0-98.0); Monocytes Absolute Auto 0.7 X10*3/uL (0.1-1.2); Neutrophils Absolute Auto 5.8 x10*3/uL (2.0-8.3); Platelet Count 383 X10*3/uL (160-400); Red Blood Count 4.08 X10*6/uL (4.60-5.80); Red Cell Distribution Width 14.1 % (11.0-16.0); White Blood Count 7.9 X10*3/uL (4.8-10.8)
[2023-01-03 18:23] LABS: Microalbum/Creatinine Ratio Ur 397.2 ug/mg cr (<30)
[2023-01-03 18:35] LABS: Alanine Aminotransferase 39 U/L (0-40); Albumin Level 3.9 g/dL (3.5-5.0); Alkaline Phosphatase 71 U/L (39-117); Anion Gap 11 (12-20); Aspartate Amino Transferase 45 U/L (5-37); Bilirubin Direct 0.1 mg/dL (0.0-0.5); Bilirubin Total 0.3 mg/dL (0.0-1.0); Blood Urea Nitrogen 24 mg/dL (9-16); Carbon Dioxide 24 mmol/L (22-29); Chloride 103 mmol/L (96-108); Estimated Glomerular Filt Rate > 60; Glucose Random 309 mg/dL (60-115); Potassium 4.4 mmol/L (3.3-5.1); Sodium 134 mmol/L (135-145); Total Protein 7.4 g/dL (6.5-8.0)
[2023-01-03 18:44] LABS: TSH reflex Free T4 48.42 uIU/mL (0.32-4.0)
[2023-01-03 19:14] LABS: Free T4 (Free Thyroxine) 0.42 ng/dL (0.71-1.85)
== END 2023-01-03 15:39 | disposition home or self-care (01) ==
LOC: HO.CHCLDS 15:38
PROVIDERS: Visit Provider Pediatrics
DX: R60.0 Localized edema (principal)
CPT/HCPCS: 36415; 80048; 80076; 82043; 82570; 84439; 84443; 85025

== ENCOUNTER 2023-01-24 13:18 | Outpatient (REF) | payer OTHER, SELFPAY ==
[2023-01-24 15:49] LABS: Creatinine Urine 58.07 mg/dL; Microalbum/Creatinine Ratio Ur 721.5 ug/mg cr (<30)
[2023-01-24 15:52] LABS: Alanine Aminotransferase 43 U/L (0-40); Alkaline Phosphatase 71 U/L (39-117); Anion Gap 11 (12-20); Aspartate Amino Transferase 53 U/L (5-37); Bilirubin Direct 0.2 mg/dL (0.0-0.5); Bilirubin Total 0.5 mg/dL (0.0-1.0); Blood Urea Nitrogen 23 mg/dL (9-16); Calcium 9.5 mg/dL (8.4-10.2); Carbon Dioxide 25 mmol/L (22-29); Chloride 106 mmol/L (96-108); Cholesterol 193 mg/dL (<200); Estimated Glomerular Filt Rate > 60; Glucose Fasting 145 mg/dL (60-99); HDL Cholesterol 57 mg/dL (>40); LDL Cholesterol Calculated 117 mg/dL (<100); Potassium 3.8 mmol/L (3.3-5.1); Sodium 138 mmol/L (135-145); Total Protein 7.5 g/dL (6.5-8.0); Triglycerides 98 mg/dL (<150)
[2023-01-24 16:07] LABS: Thyroid Stimulating Hormone 8.58 uIU/mL (0.32-4.0)
== END 2023-01-24 13:19 | disposition home or self-care (01) ==
LOC: HO.CHCLDS 13:18
PROVIDERS: Visit Provider Student in an Organized Health Care Education/Training Program
DX: E11.9 Type 2 diabetes mellitus without complications (principal); E03.9 Hypothyroidism, unspecified
CPT/HCPCS: 36415; 80048; 80061; 80076; 82043; 82570; 84443

== ENCOUNTER 2023-08-14 15:09 | Outpatient (AMB) | payer OTHER, SELFPAY ==
--- NOTE | 2023-08-14 15:14 | MHC.OFFVIS ---
Intake Visit Reasons: circumcision consult/Epididymal cyst Intake Note: New patient is present for Epididymal cyst/Circumcision Antibiotic Allergies: None Allergies methadone [Methadone] Allergy (Mild, Verified 08/14/23 15:16) AGITATION morphine [Morphine] Allergy (Mild, Verified 08/14/23 15:16) AGITATION oxycodone [From Percocet] Allergy (Mild, Verified 08/14/23 15:16) ITCHING atorvastatin Allergy (Unknown, Verified 08/14/23 15:16) Unknown niacin Allergy (Unknown, Verified 08/14/23 15:16) Hives MORPHINE Allergy (Unknown, Uncoded 08/14/23 15:16) Unknown HPI Comments Details: Surya is here for evaluation for circumcision. CoMorbidity Diabetes. He denies urinary symptoms, denies dysuria, denies hematuria. He has had recurrent balanitis. Exam - redundant foreskin, phimosis Plan- discussed circumcision [facility] Medical History (Updated 09/11/23 @ 23:00 by Sumit Oswald MD) Cyst, epididymis Diabetes Social History Current occupational status: disabled Current occupation: rt hand Review of Systems Const All systems reviewed & are unremarkable except as noted in HPI and below Reports no additional complaints Eyes Reports no additional complaints ENT Reports no additional complaints Card Reports no additional complaints Resp Reports no additional complaints GI Reports no additional complaints Reports as per HPI Musc Reports no additional complaints Skin/Breast Reports system reviewed and no additional complaints, except as documented Neuro Reports no additional complaints Psych Reports no additional complaints Endo Reports no additional complaints Jerrod/Lymph Reports no additional complaints Aller/Immun Reports no additional complaints Physical Exam Const General: healthy appearing, no acute distress and well developed Orientation/consciousness: patient oriented x3 HEENT Head: Yes normocephalic and Yes atraumatic Eyes Conjunctivae: conjunctivae normal Neck Neck: Yes normal visual inspection Chest Chest palpation & inspection: normal inspection of the chest Resp Effort & Inspection: normal respiratory effort Cardio Rate: regular rate GI Inspection: Yes normal to inspection Palpation (GI): Soft to palpation Penis: normal penis and uncircumcised Scrotum: scrotum normal Neuro General: patient oriented x3 Extrem General: No pedal edema Psych Appearance: grossly normal Affect: normal affect Results AMB Urinalysis, Automated UA Leukoctes 0 Mckenzie/uL Last Edit by Ambar Gonzalez, A on 08/14/23 15:26 UA Nitrite Negative Last Edit by Ambra Gonzalez, A on 08/14/23 15:26 UA Urobilinogen 0.2 mg/dL Last Edit by Ambar Gonzalez, A on 08/14/23 15:26 UA Protein 300 mg/dL Last Edit by Ambar Gonzalez, A on 08/14/23 15:26 UA pH 5.0 Last Edit by Ambar Gonzalez, RMA on 08/14/23 15:26 UA Blood 0 Durga/uL Last Edit by Ambar Gonzalez, A on 08/14/23 15:26 UA Specific Durant 1.025 Last Edit by Ambar Gonzalez, A on 08/14/23 15:26 UA Ketone Negative Last Edit by Ambar Gonzalez, A on 08/14/23 15:26 UA Bilirubin 0 mg/dL Last Edit by Ambar Gonzalez, A on 08/14/23 15:26 UA Glucose 0 mg/dL Last Edit by Ambar Gonzalez, A on 08/14/23 15:26 Results Reviewed Results Reviewed: Laboratory Last Values Urine pH (Auto) 5.0 08/14/23 15:25 Specific Durant (Auto) 1.025 08/14/23 15:25 Urine Protein (Auto) 300 mg/dL 08/14/23 15:25 Glucose (UA)(Auto) 0 mg/dL 08/14/23 15:25 Urine Ketones (Auto) Negative 08/14/23 15:25 Urine Blood (Auto) 0 Durga/uL 08/14/23 15:25 Urine Nitrite (Auto) Negative 08/14/23 15:25 Urine Bilirubin (Auto) 0 mg/dL 08/14/23 15:25 Urine Urobilinogen (Auto) 0.2 mg/dL 08/14/23 15:25 Leukocyte Esterase (Auto) 0 Mckenzie/uL 08/14/23 15:25 Assessment & Plan Assessment & Plan (1) Phimosis: Code(s): N47.1 - Phimosis Category: Medical (2) Balanitis: Code(s): N48.1 - Balanitis Category: Medical Plan Discussed circumcision Orders: Orders AMB Urinalysis Automated 08/14/23 Z13.9 - Encounter for screening, unspecified Patient Instructions: The patient had an opportunity to ask questions regarding treatment plan. The patient expressed understanding and agreement with the above treatment plan. The patient is aware they should contact our office by phone for worsening of their current condition or the appearance of new symptoms. Compliance is encouraged with any medications and followup testing that is ordered. It is a privilege to be allowed the opportunity to participate in the urologic care of your patient. If you have any questions or concerns regarding treatment for the above conditions please do not hesitate to contact me. The office telephone contact is [phone]. This note is constructed in part using voice recognition software. While every effort has been made to ensure accuracy rn hyperbaric errors may have been included. Yours sincerely, Sumit Oswald MD Coding Level of Care Code New Pt Level 3 (53416) Diagnoses Phimosis N47.1 Balanitis N48.1
== END 2023-08-14 16:17 | disposition home or self-care (01) ==
PROVIDERS: PCP Emergency Medicine; Visit Provider Urology
DX: N47.1 Phimosis (principal); N48.1 Balanitis
CPT/HCPCS: 99203

== ENCOUNTER → 2023-08-14 15:09 | Outpatient (BNVA) | payer OTHER, SELFPAY | PROVIDERS: PCP Emergency Medicine; Visit Provider Urology | DX: N47.1 Phimosis (principal); N48.1 Balanitis | CPT/HCPCS: 81003; 99202 ==